=== PATIENT | female | born 1965 | race Caucasian/White ===

== ENCOUNTER → 2016-05-16 | Outpatient (CLI) | payer OTHER ==
[2016-05-16 14:07] LABS: BASO % 0.2 %; BASO ABS # 0.02 K/uL (0-0.2); COMPLETE YES; HEMATOCRIT 35.2 % (37-47); IG% 0.2 %; LYMPH % 35.7 %; LYMPH ABS # 4.04 K/uL (1.2-3.4); MEAN CELL VOLUME 76.9 fL (80-100); MEAN CORPUSCULAR HEMOGLOBIN 22.7 pg (25-34); MEAN CORPUSCULAR HGB CONC 29.5 g/dl (32-36); MEAN PLATELET VOLUME 12.6 fL (7.4-10.4); MONO % 6.7 %; NEUT % 54.2 %; PLATELET COUNT 217 K/uL (130-400); RED BLOOD COUNT 4.58 M/uL (4.2-5.4); WHITE BLOOD COUNT 11.32 K/uL (4.8-10.8)
[2016-05-16 14:10] LABS: ESTIMATED AVERAGE GLUCOSE 166 mg/dl; HA1C FLAG Normal (Normal)
[2016-05-16 14:34] LABS: ALT/SGPT 22 U/L (12-78); AST/SGOT 15 U/L (15-37); BLOOD UREA NITROGEN 21 mg/dl (7-18); BUN/CREATININE RATIO 17.3 (10-20); CALCIUM 8.5 mg/dl (8.5-10.1); CARBON DIOXIDE 26 mmol/L (21-32); CHLORIDE 103 mmol/L (98-107); CHOLESTEROL 125 mg/dl (0-200); GLUCOSE 72 mg/dl (70-99); POTASSIUM 4.3 mmol/L (3.5-5.1); SODIUM 139 mmol/L (136-145); TRIGLYCERIDES 135 mg/dl (0-150); VERY LOW DENSITY LIPOPROT CALC 27 mg/dl
[2016-05-16 14:39] LABS: ALB/GLOB RATIO 0.7 (0.9-2); ALKALINE PHOSPHATASE 109 U/L (45-117); CHOLESTEROL/HDL RATIO 2.6; HDL CHOLESTEROL 49 mg/dl; LDL CHOLESTEROL CALCULATED 49 mg/dl
== END | disposition home or self-care (01) ==
LOC: C.LABSPEC 13:37
PROVIDERS: ATTEND Family Medicine
DX: E11.9 Type 2 diabetes mellitus without complications (principal); R05 Cough; I10 Essential (primary) hypertension

== ENCOUNTER → 2016-08-23 | Outpatient (CLI) | payer OTHER ==
[2016-08-23 13:21] LABS: BASO % 0.3 %; BASO ABS # 0.03 K/uL (0-0.2); COMPLETE YES; EOS % 2.2 %; HEMATOCRIT 35.2 % (37-47); IG% 0.2 %; LYMPH ABS # 2.45 K/uL (1.2-3.4); MEAN CELL VOLUME 76.5 fL (80-100); MEAN CORPUSCULAR HEMOGLOBIN 22.2 pg (25-34); MEAN PLATELET VOLUME 11.9 fL (7.4-10.4); MONO % 4.8 %; NEUT % 69.5 %; PLATELET COUNT 220 K/uL (130-400); WHITE BLOOD COUNT 10.63 K/uL (4.8-10.8)
[2016-08-23 13:37] LABS: ESTIMATED AVERAGE GLUCOSE 174 mg/dl; HA1C FLAG Normal (Normal)
[2016-08-23 13:49] LABS: ALT/SGPT 25 U/L (12-78); BLOOD UREA NITROGEN 21 mg/dl (7-18); BUN/CREATININE RATIO 19.4 (10-20); CARBON DIOXIDE 26 mmol/L (21-32); CHLORIDE 103 mmol/L (98-107); CHOLESTEROL 122 mg/dl (0-200); GLUCOSE 246 mg/dl (70-99); POTASSIUM 4.7 mmol/L (3.5-5.1); SODIUM 138 mmol/L (136-145); TRIGLYCERIDES 136 mg/dl (0-150); VERY LOW DENSITY LIPOPROT CALC 27 mg/dl
[2016-08-23 13:52] LABS: ALB/GLOB RATIO 0.7 (0.9-2); ALKALINE PHOSPHATASE 103 U/L (45-117); AST/SGOT 18 U/L (15-37); CHOLESTEROL/HDL RATIO 2.8; HDL CHOLESTEROL 44 mg/dl; LDL CHOLESTEROL CALCULATED 51 mg/dl
== END | disposition home or self-care (01) ==
LOC: C.LABSPEC 12:49
PROVIDERS: ATTEND Family Medicine
DX: E11.9 Type 2 diabetes mellitus without complications (principal); I10 Essential (primary) hypertension

== ENCOUNTER → 2016-11-11 | Outpatient (CLI) | payer OTHER ==
[2016-11-11 14:15] LABS: ESTIMATED AVERAGE GLUCOSE 174 mg/dl; HA1C FLAG Normal (Normal)
[2016-11-11 14:22] LABS: ALT/SGPT 25 U/L (12-78); AST/SGOT 16 U/L (15-37); BLOOD UREA NITROGEN 20 mg/dl (7-18); BUN/CREATININE RATIO 17.9 (10-20); CALCIUM 8.8 mg/dl (8.5-10.1); CARBON DIOXIDE 28 mmol/L (21-32); CHLORIDE 104 mmol/L (98-107); GLUCOSE 106 mg/dl (70-99); POTASSIUM 4.7 mmol/L (3.5-5.1); SODIUM 139 mmol/L (136-145)
[2016-11-11 14:24] LABS: ALB/GLOB RATIO 0.7 (0.9-2); ALKALINE PHOSPHATASE 95 U/L (45-117); CHOLESTEROL 100 mg/dl (0-200); CHOLESTEROL/HDL RATIO 2.5; HDL CHOLESTEROL 40 mg/dl; LDL CHOLESTEROL CALCULATED 36 mg/dl; TRIGLYCERIDES 121 mg/dl (0-150); VERY LOW DENSITY LIPOPROT CALC 24 mg/dl
[2016-11-11 14:36] LABS: BASO % 0.3 %; BASO ABS # 0.03 K/uL (0-0.2); COMPLETE YES; EOS % 4.5 %; IG% 0.2 %; LYMPH % 33.5 %; LYMPH ABS # 3.13 K/uL (1.2-3.4); MEAN CELL VOLUME 77.3 fL (80-100); MEAN CORPUSCULAR HEMOGLOBIN 21.6 pg (25-34); MEAN PLATELET VOLUME 12.2 fL (7.4-10.4); MONO % 7.1 %; NEUT % 54.4 %; PLATELET COUNT 215 K/uL (130-400); RED BLOOD COUNT 4.53 M/uL (4.2-5.4); WHITE BLOOD COUNT 9.33 K/uL (4.8-10.8)
== END | disposition home or self-care (01) ==
LOC: C.LABSPEC 11:15
PROVIDERS: ATTEND Family Medicine
DX: E11.9 Type 2 diabetes mellitus without complications (principal); F52.0 Hypoactive sexual desire disorder; I10 Essential (primary) hypertension

== ENCOUNTER → 2017-04-18 | Outpatient (CLI) | payer OTHER ==
[2017-04-18 18:44] LABS: ALBUMIN 2.9 gm/dl (3.4-5.0); ALT/SGPT 21 U/L (12-78); AST/SGOT 20 U/L (15-37); BLOOD UREA NITROGEN 16 mg/dl (7-18); CALCIUM 9.3 mg/dl (8.5-10.1); CARBON DIOXIDE 29 mmol/L (21-32); CHOLESTEROL 134 mg/dl (0-200); CREATININE 1.17 mg/dl (0.60-1.20); GLUCOSE 217 mg/dl (70-99); POTASSIUM 4.6 mmol/L (3.5-5.1); SODIUM 136 mmol/L (136-145)
[2017-04-18 18:45] LABS: HEMATOCRIT 32.9 % (37-47); HEMOGLOBIN 9.6 g/dL (12.0-16.0); MEAN CELL VOLUME 74.8 fL (80-100); MEAN CORPUSCULAR HEMOGLOBIN 21.8 pg (25-34); MEAN CORPUSCULAR HGB CONC 29.2 g/dl (32-36); MEAN PLATELET VOLUME 11.9 fL (7.4-10.4); PLATELET COUNT 210 K/uL (130-400); RED CELL DISTRIBUTION WIDTH CV 16.4 % (11.5-14.5); RED CELL DISTRIBUTION WIDTH SD 44.8 fL (36.4-46.3); WHITE BLOOD COUNT 8.98 K/uL (4.8-10.8)
[2017-04-18 18:47] LABS: ALKALINE PHOSPHATASE 120 U/L (45-117); LDL CHOLESTEROL CALCULATED 67 mg/dl; TOTAL PROTEIN 7.2 gm/dl (6.4-8.2)
[2017-04-18 18:55] LABS: BASO % 0.2 %; BASO ABS # 0.02 K/uL (0-0.2); EOS ABS # 0.27 K/uL (0-0.5); IG# 0.04 K/uL (0.00-0.02); LYMPH % 23.9 %; LYMPH ABS # 2.15 K/uL (1.2-3.4); MONO % 5.7 %; MONO ABS # 0.51 K/uL (0.11-0.59); NEUT % 66.8 %; NEUT ABS # 5.99 K/uL (1.4-6.5)
[2017-04-19 06:37] LABS: HEMOGLOBIN A1C 8.9 % (4.5-5.6)
== END | disposition home or self-care (01) ==
LOC: C.LABSPEC 17:58
PROVIDERS: ATTEND Family Medicine
DX: E11.9 Type 2 diabetes mellitus without complications (principal); I10 Essential (primary) hypertension; R42 Dizziness and giddiness

== ENCOUNTER → 2017-07-27 | Outpatient (CLI) | payer OTHER ==
[2017-07-27 19:16] LABS: ALBUMIN 2.9 gm/dl (3.4-5.0); ALT/SGPT 21 U/L (12-78); AST/SGOT 18 U/L (15-37); BLOOD UREA NITROGEN 19 mg/dl (7-18); CALCIUM 8.8 mg/dl (8.5-10.1); CARBON DIOXIDE 25 mmol/L (21-32); CHOLESTEROL 113 mg/dl (0-200); CREATININE 1.26 mg/dl (0.60-1.20); GLUCOSE 148 mg/dl (70-99); POTASSIUM 4.1 mmol/L (3.5-5.1); SODIUM 138 mmol/L (136-145)
[2017-07-27 19:19] LABS: ALKALINE PHOSPHATASE 98 U/L (45-117); LDL CHOLESTEROL CALCULATED 51 mg/dl; TOTAL PROTEIN 6.7 gm/dl (6.4-8.2)
[2017-07-27 19:24] LABS: HEMATOCRIT 32.9 % (37-47); HEMOGLOBIN 9.5 g/dL (12.0-16.0); MEAN CELL VOLUME 73.4 fL (80-100); MEAN CORPUSCULAR HEMOGLOBIN 21.2 pg (25-34); MEAN CORPUSCULAR HGB CONC 28.9 g/dl (32-36); PLATELET COUNT 239 K/uL (130-400); RED CELL DISTRIBUTION WIDTH CV 16.6 % (11.5-14.5); RED CELL DISTRIBUTION WIDTH SD 44.8 fL (36.4-46.3); WHITE BLOOD COUNT 9.01 K/uL (4.8-10.8)
[2017-07-27 19:35] LABS: BASO % 0.2 %; BASO ABS # 0.02 K/uL (0-0.2); EOS % 3.4 %; EOS ABS # 0.31 K/uL (0-0.5); IG# 0.01 K/uL (0.00-0.02); LYMPH % 24.2 %; LYMPH ABS # 2.18 K/uL (1.2-3.4); MONO % 6.5 %; MONO ABS # 0.59 K/uL (0.11-0.59); NEUT % 65.6 %
[2017-07-28 06:38] LABS: HEMOGLOBIN A1C 7.9 % (4.5-5.6)
== END | disposition home or self-care (01) ==
LOC: C.LABSPEC 18:24
PROVIDERS: ATTEND Family Medicine
DX: E11.9 Type 2 diabetes mellitus without complications (principal)

== ENCOUNTER → 2017-11-13 | Outpatient (CLI) | payer OTHER ==
[2017-11-13 18:56] LABS: BASO % 0.3 %; BASO ABS # 0.03 K/uL (0-0.2); EOS % 2.4 %; EOS ABS # 0.24 K/uL (0-0.5); HEMATOCRIT 34.7 % (37-47); HEMOGLOBIN 9.8 g/dL (12.0-16.0); IG# 0.03 K/uL (0.00-0.02); LYMPH % 24.8 %; LYMPH ABS # 2.44 K/uL (1.2-3.4); MEAN CELL VOLUME 75.3 fL (80-100); MEAN CORPUSCULAR HEMOGLOBIN 21.3 pg (25-34); MEAN CORPUSCULAR HGB CONC 28.2 g/dl (32-36); MONO % 5.5 %; MONO ABS # 0.54 K/uL (0.11-0.59); NEUT % 66.7 %; NEUT ABS # 6.56 K/uL (1.4-6.5); PLATELET COUNT 229 K/uL (130-400); RED CELL DISTRIBUTION WIDTH CV 17.1 % (11.5-14.5); RED CELL DISTRIBUTION WIDTH SD 46.7 fL (36.4-46.3); WHITE BLOOD COUNT 9.84 K/uL (4.8-10.8)
[2017-11-13 19:05] LABS: ALBUMIN 3.1 gm/dl (3.4-5.0); ALKALINE PHOSPHATASE 98 U/L (45-117); ALT/SGPT 24 U/L (12-78); AST/SGOT 26 U/L (15-37); BLOOD UREA NITROGEN 17 mg/dl (7-18); CALCIUM 8.9 mg/dl (8.5-10.1); CARBON DIOXIDE 25 mmol/L (21-32); CHOLESTEROL 116 mg/dl (0-200); CREATININE 1.26 mg/dl (0.60-1.20); GLUCOSE 181 mg/dl (70-99); LDL CHOLESTEROL CALCULATED 53 mg/dl; POTASSIUM 4.8 mmol/L (3.5-5.1); SODIUM 137 mmol/L (136-145); TOTAL PROTEIN 7.1 gm/dl (6.4-8.2)
[2017-11-14 07:11] LABS: HEMOGLOBIN A1C 6.9 % (4.5-5.6)
== END | disposition home or self-care (01) ==
LOC: C.LABSPEC 18:09
PROVIDERS: ATTEND Family Medicine
DX: Z00.00 Encounter for general adult medical examination without abnormal findings (principal); E11.9 Type 2 diabetes mellitus without complications; I10 Essential (primary) hypertension